=== PATIENT | male | born 1970 ===

== ENCOUNTER 2017-11-30 08:35 | Observation (INO) | payer OTHER ==
[2017-11-24 09:39] VITALS: BMI 31.7
[2017-11-30] MEDS ORDERED: Lidocaine/Epinephrine 1% 1:100000 10 ML IJ ONE (10:32)
[2017-11-30] MEDS ORDERED: ceFAZolin 1 gm in NS 0 GM/0 ML BAG IVPB ONE (10:33)
[2017-11-30] MEDS ORDERED: Bupivacaine HCl 0.25% PF (10 ml) Inj ONE (10:33)
[2017-11-30] MEDS ORDERED: Midazolam 2 MG/2 ML VIAL ONE (10:45)
[2017-11-30] MEDS ORDERED: Propofol 10 mg/ml Inj (20 ML) ONE ×2 (10:45→11:07)
[2017-11-30] MEDS ORDERED: Succinylcholine Chloride 20 mg/ml Syr (5 ml) IV ONE (10:51)
[2017-11-30] MEDS ORDERED: ceFAZolin IV 2 gm in Dextrose 2 GM/50 ML BAG IVPB ONE ×2 (10:54→11:04)
[2017-11-30] MEDS ORDERED: HYDROmorphone 0.5 mg/0.5 ml ISec IVP PRN (12:52)
[2017-11-30] MEDS ORDERED: Oxycodone/Acetaminophen 5/325 mg Tab PO PRN (12:53)
--- NOTE | 2017-11-30 12:53 | PCM.SURG1 ---
Surgeon's Initial Post Op Note - Surgeon's Notes Surgeon: Dr. Nix Technical Administrator: Judith Grady, PGY-1; Roger ALVARADO-III Type of Anesthesia: General Endo Pre-Operative Diagnosis: Lipoma of right abdominal wall Operative Findings: See op report Post-Operative Diagnosis: Lipoma of right abdominal wall Operation Performed: Excision of lipoma of right abdominal wall Specimen/Specimens Removed: lipoma Estimated Blood Loss: EBL {In ML}: 5 Blood Products Given: N/A Drains Used: No Drains Post-Op Condition: Good Date of Surgery/Procedure: 11/30/17 Time of Surgery/Procedure: 12:52
[2017-11-30] MEDS ORDERED: Lactated Ringer's 1,000 ML IV ONE (14:00)
[2017-11-30] MEDS ORDERED: Sodium Chloride 0.9% 1,000 ML IV SCH (17:45)
[2017-11-30] MEDS: Pantoprazole 40 mg EC Tab PO SCH (18:05)
[2017-11-30 19:11] VITALS: RESP 20
[2017-11-30] MEDS: Lactated Ringer's 1,000 ML IV SCH (20:00)
[2017-12-01] MEDS: Lactated Ringer's 1,000 ML IV SCH ×2 (05:59→06:01)
--- NOTE | 2017-12-01 08:23 | CP.PCM.DIS ---
Provider - Provider Date of Admission: 11/30/17 17:32 Attending physician: Maurice Nix MD Primary care physician: Dr. Nix-general surgery Consults: None Time Spent in preparation of Discharge (in minutes): 35 Diagnosis - Discharge Diagnosis (1) S/P excision of lipoma Status: Acute (2) Post-operative nausea and vomiting Status: Acute Hospital Course - Hospital Course Hospital Course: 47M w/PMH sig for GERD admitted for observation s/p lipoma excision of right abdominal wall due to nausea and emesis x 4 not relieved by Zofran and Reglan. Overnight, pt with no episodes of nausea or emesis, tolerating diet, stable and ready for discharge home as per Dr. Nix. Diagnoses s/p lipoma excision post op nausea and vomiting- resolved Discharge Exam - Head Exam Head Exam: ATRAUMATIC, NORMAL INSPECTION, NORMOCEPHALIC - Eye Exam Eye Exam: EOMI, Normal appearance - ENT Exam ENT Exam: Mucous Membranes Moist, Normal Exam - Neck Exam Neck exam: Full Rom, Normal Inspection - Respiratory Exam Respiratory Exam: NORMAL BREATHING PATTERN, UNREMARKABLE - Cardiovascular Exam Cardiovascular Exam: REGULAR RHYTHM, +S1, +S2 - GI/Abdominal Exam GI & Abdominal Exam: Soft, Tenderness (over incision site). absent: Distended, Firm, Guarding, Hernia - Extremities Exam Extremities exam: full ROM, normal inspection - Neurological Exam Neurological exam: Alert, CN II-XII Intact, Oriented x3 - Psychiatric Exam Psychiatric exam: Normal Affect, Normal Mood - Skin Skin Exam: Dry, Intact, Normal Color, Warm Additional comments: Abdominal wall dressing clean/dry/intact Discharge Plan - Follow Up Plan Condition: GOOD Disposition: HOME/ ROUTINE Instructions: Lipoma (DC) Additional Instructions: Ok to remove dressing in 5 days, please keep dressing clean and dry until then - cover with plastic and tape. Please follow up with Dr. Nix in his office in 7-10 days. If you have any problems, please call his office. You have prescriptions in the chart - if you take the pain medication, please do not operate heavy machinery. Referrals: Maurice Nix MD [Staff Provider] -
[2017-12-01 08:35] VITALS: BP 139/77; PULSE 77; TEMP 98.1; O2SAT 96
[2017-12-01] MEDS: Pantoprazole 40 mg EC Tab PO SCH (11:00)
--- NOTE | 2017-12-02 07:56 | OP ---
PROCEDURE DATE: 11/30/2017 PREOPERATIVE DIAGNOSIS: Lipoma of abdominal wall, approximately 8 x 10 cm size. POSTOPERATIVE DIAGNOSIS: Lipoma of abdominal wall, approximately 8 x 10 cm size. PROCEDURE DONE: 1. Excision of lipoma of the abdominal wall, 8 x 10 cm size. 2. Layered closure of the wound, approximately 8 x 4 cm size. 3. Excision of the redundant skin of abdominal wall, approximately 8 x 2 cm size. PROCEDURE DONE BY: Maurice Nix MD PUNCH PRESS OPERATOR HELPER: Kasia Grady, PGY-2 resident; and LISSET [place] TYPE OF ANESTHESIA: General endotracheal anesthesia. ESTIMATED BLOOD LOSS: Around 30 mL. DRAINS: None. PATHOLOGY: Large size of the lipoma of the abdominal wall was sent for pathology. COMPLICATIONS: None. INTRAOPERATIVE FINDINGS: The patient had approximately 8 x 10 cm large lipoma of the right upper part of the abdomen and redundant skin of the lower flap was excised to align the wound for proper cosmetic closure. DESCRIPTION OF PROCEDURE: On intraoperative steps, this 47-year-old male was diagnosed with a large lipoma of the abdominal wall of right upper abdomen, and the patient was consented for excision of lipoma, brought to the OR, placed supine on the operating table. After induction of anesthesia, the abdomen was prepped and draped in the usual sterile fashion. An elliptical 8 x 2 cm incision was made after incising the skin and subcutaneous tissue, the upper and lower flap was created and lipoma was identified and lipoma was completely excised from the surrounding tissue. The patient also had finger like extension of lipoma that was excised superiorly, inferiorly, medially, as well as laterally, After complete excision of thickened lipoma extension flap closure was done. First upper flap layer closure was done with 2-0 multiple sutures and now lower flap was sutured to the underlying fascia. Due to the large size of the lipoma and approximately 8 x 2 cm redundant skin was excised and now another layer of subcu with a 2-0 Vicryl was done, another layer of the subcu with 3-0 Vicryl, and another layer of the subcu with 4-0 Monocryl and dry sterile dressing was applied. The patient tolerated the procedure well. Count of the instruments and gauze was correct. The patient was extubated in the OR and sent to the Postanesthesia care unit in stable condition. _ Maurice Nix MD MTDSage
--- NOTE | 2017-12-06 21:46 | CP.PCM.CON ---
History of Present Illness - History of Present Illness History of Present Illness: Patient postoperatively was status post removal of the lipoma, complicated with the nausea and vomiting. History present illness: 47-year-old male with a history of History of renal stones, hypertension, hypertriglyceridemia admitted to the hospital following removal of the lipoma. Patient was able to be discharged, he started having profound vomiting and nausea. He was not able to tolerate. Patient needed hospitalization. Patient was admitted for observation. Medical evaluation for routine management. Past medical history: Patient had a renal stones x2 in the past, mainly on the right side. He also has a history of hypertension in the past, not taking any medicine now. He noted to have a triglycerides, high in the past. Surgical history: None. Family history: Father has a history of hypertension, diabetes. Mother has a history of diabetes, hypertension, heart disease. 2 brothers and 4 sisters, he has 4 kids. Social history: Nonsmoker nonalcoholic. Drinks coffee daily. No substance abuse Currently working in the [employer]. Current medications none. Review of systems: Generally feeling well. Denies any headache. status post abdominal surgery Denies any chest pain, no shortness of breath. Leg swelling negative. On examination: HEENT PERRLA, neck supple No thyromegaly was noted and no cervical adenopathy noted Chest bilateral good air entry, no wheezing or rales noted CVS regular heart sound, no murmur Abdomen soft and no organomegaly, postoperative Extremities no pedal edema, no leg swelling, pedal pulses are good. HOLE DIGGER alert awake oriented x3 no functional neurological deficit. Mild elevation of the blood pressure noted. Assessment and recommendation: 47-year-old male came to the office with a possiblehypertension, hypertriglyceridemia, and the kidney disease status post lipoma removal. patient possibly has anesthesia related nausea and vomiting. Continue with IV fluid. continue the current treatment Can be discharged home tomorrow Past Patient History - Past Medical History & Family History Past Medical History?: Yes - Past Social History Smoking Status: Never Smoked - CARDIAC Hx Cardiac Disorders: No - PULMONARY Hx Respiratory Disorders: No - NEUROLOGICAL Hx Neurological Disorder: No - HEENT Hx HEENT Problems: No - RENAL Hx Chronic Kidney Disease: No - ENDOCRINE/METABOLIC Hx Endocrine Disorders: No - HEMATOLOGICAL/ONCOLOGICAL Hx Blood Disorders: Yes (elevated uric acid levels) - INTEGUMENTARY Hx Dermatological Problems: Yes Other/Comment: ABDOMINAL WALL MASS - MUSCULOSKELETAL/RHEUMATOLOGICAL Hx Musculoskeletal Disorders: No - GASTROINTESTINAL Hx Gastrointestinal Disorders: No - GENITOURINARY/GYNECOLOGICAL Hx Genitourinary Disorders: No - PSYCHIATRIC Hx Psychophysiologic Disorder: No - SURGICAL HISTORY Hx Surgeries: No - ANESTHESIA Hx Anesthesia: No Has any member of the family had a problem w/ anesthesia?: No Meds Allergies/Adverse Reactions: Allergies Allergy/AdvReac Type Severity Reaction Status Date / Time No Known Allergies Allergy Verified 11/24/17 09:34 Results - Vital Signs Recent Vital Signs: Last Vital Signs Temp 98.1 F 12/01/17 07:00 Pulse 77 12/01/17 07:00 Resp 20 12/01/17 07:00 BP 139/77 12/01/17 07:00 Pulse Ox 96 12/01/17 13:02
== END 2017-12-01 13:12 | disposition home or self-care (01) ==
LOC: C.SDS 08:35 → C.3T 17:32
PROVIDERS: ADMIT Surgery Surgical Critical Care; ATTEND Surgery Surgical Critical Care
DX: T81.89XA Other complications of procedures, not elsewhere classified, initial encounter (principal); R11.2 Nausea with vomiting, unspecified; K21.9 Gastro-esophageal reflux disease without esophagitis; D17.9 Benign lipomatous neoplasm, unspecified; L98.7 Excessive and redundant skin and subcutaneous tissue; M10.9 Gout, unspecified
CPT/HCPCS: 13101; 13102; 17999; 22903; 88304; G0378; J0690; J1170; J1885; J2250; J2405; J2704; J2765; J3010; J7120